=== PATIENT | male | born 1990 | race Caucasian/White ===

== ENCOUNTER 2021-03-13 18:45 | Emergency (ER) | payer SELFPAY ==
[2021-03-13 18:47] VITALS: BP 128/98; PULSE 71; RESP 20; TEMP 36.6; O2SAT 98
--- NOTE | 2021-03-13 19:05 | PC.NURSE ---
Arrives ambulatory steady gait from triage, s/p verbal altercation with significant other, pt states they have been continually arguing about custody regarding 4 month old son. Today baby's mother threatened to put the baby up for adoption , pt told her if anything happens to my child I will fucking kill you . Police were called, pt states they told me to come in for an evaluation if I want any chance of custody . Pt is calm and cooperative, denies SI/HI, states statement was in heat of the moment . All clothing and belongings removed from room, placed in x1 belonging bag and placed in security cabinet
--- NOTE | 2021-03-13 19:26 | ED.PSYCH ---
HPI - Psych General Chief Complaint: Psychiatric Symptoms Stated Complaint: psych issues, hi Time Seen by Provider: 03/13/21 19:02 History of Present Illness HPI Narrative: Patient is a 30-year-old male who presents the ER by police after a verbal altercation with his girlfriend who is also the mother of his child. The patient's girlfriend made a statement to him that she was going to try to give their child up for adoption either in 2 days or this weekend. This made him mad and he stated that if anything happened to his child he would kill her. He reports he said this due to being angry that he has no homicidal intent prior to that nor at this time. He has no plan to harm her. He reports that his plan is to obtain wire and a DNA test for the his child that is 4 months old so that he could try to obtain custody if this is the avenue she is going to try to go. Patient currently lives with his girlfriend at her mother's home. Patient reports that him and his girlfriend have a long history of verbal altercations with each other and that she knows how to push his buttons. Denies any ingestion of intoxicants. He does smoke marijuana on occasion. Patient thinks he could have some component of bipolar disorder that is untreated but he has never seen a psychiatrist. She feels this way because his mother has mental health issues. Review of Systems Review of Systems: All systems reviewed & are unremarkable except as noted in HPI and below Constitutional: Constitutional: Denies chills and Denies fever(s) ENT: Denies nasal congestion and Denies sore throat Cardiovascular: Cardiovascular: Denies chest pain Gastrointestinal: Gastrointestinal: Denies abdominal pain, Denies nausea and Denies vomiting Psychiatric: Psychiatric: Denies anxiety, Denies depression, Denies homicidal ideation and Denies suicidal ideation PMF Past Medical History Medical History (Updated 03/13/21 @ 22:18 by Farhan Covington MD) Healthy adult male Surgical History Surgical History (Updated 03/13/21 @ 19:30 by Farhan Covington MD) No history of previous surgery Social History Social History Substance use type: does not use Gender identity (if verbalized by the patient): Male Exam Narrative: Exam Narrative: GENERAL: Well-appearing, well-nourished, and in no acute distress. HEAD: Normocephalic, atraumatic. CHEST: Clear to auscultation. No respiratory distress. HEART: Regular rate and rhythm. Normal peripheral pulses. ABDOMEN: Soft, nontender, nondistended. EXTREMITIES: Normal range of motion. No edema. SKIN: Warm, dry, no rash. NEURO: Alert and oriented x3. PSYCH: Normal mood and affect. Not responding to internal stimuli. No HI/SI. Course Course Emergency Course: Patient has been in the ER for several hours. He is growing frustrated which is understandable as this is not a particularly quick process to get a crisis cassandra architect to see the patient. He has no SI or HI. He reports the police given option to come to the hospital for his anger issues or he could have just stayed at home and he chose to come here because he thought he would get help. Patient no longer wishes to stay here and will be discharged. Vital Signs Vital signs: Vital Signs Temperature 97.8 F 03/13/21 18:47 Pulse Rate 71 03/13/21 18:47 Respiratory Rate 20 03/13/21 18:47 Blood Pressure 128/98 H 03/13/21 18:47 Pulse Oximetry 98 03/13/21 18:47 Temperature 97.8 F 03/13/21 18:47 Pulse Rate 71 03/13/21 18:47 Respiratory Rate 20 03/13/21 18:47 Blood Pressure 128/98 H 03/13/21 18:47 Pulse Oximetry 98 03/13/21 18:47 MDM - Psych Lab Data Result diagrams: 03/13/21 19:36 03/13/21 19:36 Labs: Lab Results 03/13/21 03/13/21 03/13/21 Range/Units 19:36 19:36 19:36 WBC 7.0 (4.5-10.0) K/mm3 RBC 5.02 (4.6-6.20) M/mm3 Hgb 15.6 (14.0-18.0) g/dL Hct 45.3 (42.0-52.0) % MCV 90.2 (80-100) fl MCH 31.1
[2021-03-13 19:47] LABS: Basophils Absolute Auto 0.1 K/mm3 (0.0-0.1); Basophils Percent Auto 1.2 % (0.2-1.2); Eosinophils Absolute Auto 0.1 K/mm3 (0-0.3); Eosinophils Percent Auto 1.9 % (0-4.4); Hematocrit 45.3 % (42.0-52.0); Hemoglobin 15.6 g/dL (14.0-18.0); Immature Granulocyte Absolute 0.03 K/mm3 (0.00-0.031); Immature Granulocyte Percent A 0.4 % (0-0.5); Lymphocytes Absolute Auto 2.43 K/mm3 (0.9-3.2); Mean Corpuscular HGB Conc 34.4 g/dl (32-36); Mean Corpuscular Hemoglobin 31.1 pg (26-34); Mean Corpuscular Volume 90.2 fl (80-100); Mean Platelet Volume 10.4 fl (7.4-10.4); Monocytes Absolute Auto 0.6 K/mm3 (0.1-0.6); Monocytes Percent Auto 8.1 % (2.6-8.5); Neutrophils Absolute Auto 3.7 K/mm3 (1.3-6.7); Neutrophils Percent Auto 53.4 % (45.5-73.1); Platelet Count Result 344 k/mm3 (150-375); Red Blood Count 5.02 M/mm3 (4.6-6.20); Red Cell Distribution Width 11.5 % (11.5-14.5)
[2021-03-13 19:55] LABS: Ethanol < 10 mg/dL (<10)
[2021-03-13 19:56] LABS: Alanine Aminotransferase 19 U/L (4-50); Albumin Level 4.9 g/dL (3.5-5.1); Alkaline Phosphatase 44 U/L (38-126); Anion Gap 7 mmol/L (8-16); Aspartate Amino Transferase 34 U/L (17-59); Bilirubin,Total 0.5 mg/dL (0.2-1.3); Blood Urea Nitrogen 12 mg/dL (9-20); Calcium 9.6 mg/dL (8.4-10.2); Carbon Dioxide 31 mmol/L (22-30); Chloride 104 mmol/L (98-107); Estimated CRCL calculation 102 ml/min; Estimated Glomerular Filt Rate > 60; Glucose 94 mg/dL (75-110); Potassium 4.2 mmol/L (3.4-5.0); Sodium 142 mmol/L (137-145)
[2021-03-13 20:02] LABS: Amphetamine Screen Urine Negative (Negative); Barbiturate Screen Urine Negative (Negative); Benzodiazepines Screen Urine Negative (Negative); Cannabinoid Screen Urine Positive (Negative); Cocaine Screen Urine Negative (Negative); Methadone Screen Urine Negative (Negative); Opiate Screen Urine Negative (Negative); Phencyclidine Screen Urine Negative (Negative)
--- NOTE | 2021-03-13 21:25 | PC.NURSE ---
called crisis , pending assessment.
--- NOTE | 2021-03-13 21:30 | PC.NURSE ---
per ERP Dr. Covington pt is medically clear please contact crisis.
== END 2021-03-13 22:30 | disposition home or self-care (01) ==
PROVIDERS: Emergency Provider Emergency Medicine
DX: R45.4 Irritability and anger (principal)
CPT/HCPCS: 36415; 80053; 80307; 84443; 85025; 99283

== ENCOUNTER 2021-09-04 10:47 | Emergency (ER) | payer SELFPAY ==
[2021-09-04 10:57] VITALS: BP 102/57; PULSE 66; RESP 14; TEMP 36.8; O2SAT 97
--- NOTE | 2021-09-04 12:19 | PC.NURSE ---
Pt ambulated to the restroom well, pt resting quietly, provided warm blanket, pt cooperative at this time , no acute distress
[2021-09-04 12:26] LABS: Add Urine Microscopic? NO; Appearance Urine Clear (Clear); Bilirubin Urine Negative (Negative); Blood Urine Negative (Negative); Color Urine Yellow (Yellow); Glucose Urine UA Negative (Negative); Ketones Urine Negative (Negative); Leukocyte Esterase Ur Negative LEU/UL (Negative); Nitrate Urine Negative (Negative); Protein Urine Negative (Negative); Specific Grav Ur 1.019 (1.001-1.035); Urobilinogen Urine Negative mg/dL (<2.0)
[2021-09-04 12:34] LABS: Amphetamine Screen Urine Negative (Negative); Barbiturate Screen Urine Negative (Negative); Benzodiazepines Screen Urine Negative (Negative); Cannabinoid Screen Urine Positive (Negative); Cocaine Screen Urine Negative (Negative); Methadone Screen Urine Negative (Negative); Opiate Screen Urine Negative (Negative); Phencyclidine Screen Urine Negative (Negative)
[2021-09-04 12:40] LABS: Basophils Absolute Auto 0.1 K/mm3 (0.0-0.1); Eosinophils Percent Auto 0.4 % (0-4.4); Hematocrit 42.3 % (42.0-52.0); Hemoglobin 15.1 g/dL (14.0-18.0); Immature Granulocyte Absolute 0.02 K/mm3 (0.00-0.031); Immature Granulocyte Percent A 0.3 % (0-0.5); Lymphocytes Absolute Auto 1.52 K/mm3 (0.9-3.2); Lymphocytes Percent Auto 22.8 % (18.3-44.2); Mean Corpuscular HGB Conc 35.7 g/dl (32-36); Mean Corpuscular Hemoglobin 32.3 pg (26-34); Mean Corpuscular Volume 90.4 fl (80-100); Mean Platelet Volume 10.3 fl (7.4-10.4); Monocytes Absolute Auto 0.4 K/mm3 (0.1-0.6); Monocytes Percent Auto 5.7 % (2.6-8.5); Neutrophils Absolute Auto 4.7 K/mm3 (1.3-6.7); Neutrophils Percent Auto 69.8 % (45.5-73.1); Platelet Count Result 273 k/mm3 (150-375); Red Blood Count 4.68 M/mm3 (4.6-6.20); Red Cell Distribution Width 11.6 % (11.5-14.5); White Blood Count 6.7 K/mm3 (4.5-10.0)
[2021-09-04 13:05] LABS: Ethanol < 10 mg/dL (<10)
[2021-09-04 13:06] LABS: Alanine Aminotransferase 26 U/L (4-50); Albumin Level 4.5 g/dL (3.5-5.1); Alkaline Phosphatase 44 U/L (38-126); Anion Gap 9 mmol/L (8-16); Aspartate Amino Transferase 27 U/L (17-59); Bilirubin,Total 0.8 mg/dL (0.2-1.3); Blood Urea Nitrogen 9 mg/dL (9-20); Calcium 9.6 mg/dL (8.4-10.2); Carbon Dioxide 28 mmol/L (22-30); Chloride 106 mmol/L (98-107); Estimated CRCL calculation 98 ml/min; Estimated Glomerular Filt Rate > 60; Glucose 107 mg/dL (65-110); Potassium 4.4 mmol/L (3.4-5.0); Sodium 143 mmol/L (137-145)
[2021-09-04 13:36] LABS: Thyroid Stimulating Hormone 0.485 uIU/mL (0.465-4.680)
--- NOTE | 2021-09-04 14:59 | ED.GENADULT ---
HPI - General Adult General Chief complaint: Psychiatric Symptoms <Michael Darby PA-C - Last Filed: 09/04/21 15:03> Stated complaint: si <Michael Darby PA-C - Last Filed: 09/04/21 15:03> Time Seen by Provider: 09/04/21 10:53 <Michael Darby PA-C - Last Filed: 09/04/21 15:03> Source: patient and RN notes reviewed <Michael Darby PA-C - Last Filed: 09/04/21 15:03> Mode of arrival: ambulatory <Michael Darby PA-C - Last Filed: 09/04/21 15:03> Limitations: no limitations <Michael Darby PA-C - Last Filed: 09/04/21 15:03> History of Present Illness HPI narrative: Patient is a 31-year-old male who presents for EMS patient had made the statement of wanting to hurt himself to his girlfriend during an argument who is a child with sounds as though the relationship has been relatively negative he notes that she has caused increasing stress he denies any history of self-harm or suicidal homicidal ideation. Patient lives with a roommate notes that he is happy he has no other complaints presents nondistressed. Patient is normal mood normal affect upon arrival. <Michael Darby PA-C - Last Filed: 09/04/21 15:03> Related Data Allergies/adverse reactions: Allergies Allergy/AdvReac Type Severity Reaction Status Date / Time No Known Allergies Allergy Verified 09/04/21 11:02 <Michael Darby PA-C - Last Filed: 09/04/21 15:03> Review of Systems Review of Systems: All systems reviewed & are unremarkable except as noted in HPI and below <Michael Darby PA-C - Last Filed: 09/04/21 15:03> [facility] Past Medical History Medical History: Medical History Healthy adult male <Michael Darby PA-C - Last Filed: 09/04/21 15:03> Surgical History Surgical History: Surgical History No history of previous surgery <Michael Darby PA-C - Last Filed: 09/04/21 15:03> Social History Social History: Social History Substance use type: marijuana Gender identity (if verbalized by the patient): Male <Michael Darby PA-C - Last Filed: 09/04/21 15:03> Exam Narrative: GENERAL: Well-appearing, well-nourished, and in no acute distress. HEAD: Normocephalic, atraumatic. EYES: PERRLA and EOMI. ENT: Nares clear, no rhinorrhea or epistaxis. Mucous membranes moist. CHEST: Clear to auscultation. No respiratory distress. No wheezes rales or rhonchi HEART: Regular rate and rhythm. No murmur heard. Normal peripheral pulses. ABDOMEN: Soft, nontender, nondistended EXTREMITIES: Normal range of motion. No edema. SKIN: Warm, dry, no rash. NEURO: No focal deficits. Alert and oriented x3. PSYCH: Normal mood and affect. <Michael Darby PA-C - Last Filed: 09/04/21 15:03> Course Course Emergency Course: Patient in the room nondistressed aware of case findings treatment plan and diagnosis agreeing to follow-up as instructed or to return if symptoms worsen or concerns was evaluated by myself and crisis felt appropriate for a safety contract no history of psych disorder in the past he is happy with his current living situation patient will be discharged home provided with reasons to return <Michael Darby PA-C - Last Filed: 09/04/21 15:03> Vital Signs Vital signs: Vital Signs Temperature 98.2 F 09/04/21 10:57 Pulse Rate 66 09/04/21 10:57 Respiratory Rate 14 09/04/21 10:57 Blood Pressure 102/57 L 09/04/21 10:57 Pulse Oximetry 97 09/04/21 10:57 Temperature 98.2 F 09/04/21 10:57 Pulse Rate 60 09/04/21 15:29 Respiratory Rate 12 09/04/21 15:29 Blood Pressure 126/68 09/04/21 15:29 Pulse Oximetry 97 09/04/21 15:29 <PRISCILLA Abreu Last Filed: 09/04/21 15:03> Medical Decision Making MDM Narrative Medical decision making narrative: Pat
--- NOTE | 2021-09-04 15:11 | PC.NURSE ---
Pt states he is depressed and understands that he is discharged, no acute distress at this time
[2021-09-04 15:29] VITALS: BP 126/68; PULSE 60; RESP 12; O2SAT 97
== END 2021-09-04 15:31 | disposition home or self-care (01) ==
PROVIDERS: Emergency Medicine Emergency Medical Services; Emergency Provider General Practice
DX: F32.9 Major depressive disorder, single episode, unspecified (principal)
CPT/HCPCS: 36415; 80053; 80307; 81003; 84443; 85025; 99283